=== PATIENT | male | born 1990 | race American Indian/Alaskan Native ===

== ENCOUNTER 2020-02-24 16:00 | Emergency (ER) | payer OTHER ==
--- NOTE | 2020-02-24 19:49 | XRay Report ---
CHEST 2 VIEWS INDICATION / CLINICAL INFORMATION: Coughing up blood tinged mucus. Vomiting blood on and off for one month. Diagnosed with bronchitis la st month. COMPARISON: None available. FINDINGS: SUPPORT DEVICES: None. HEART / MEDIASTINUM: The heart size and pulmonary vasculature are normal. LUNGS / PLEURA: No significant pulmonary or pleural abnormality. No pneumothorax. ADDITIONAL FINDINGS: The visualized upper abdomen is unremarkable. IMPRESSION: No acute findings. There is no evidence of pneumonia. Signer Name: Raghav Pereyra MD Signed: 02/24/2020 7:44 PM Workstation Name: [id number]
--- NOTE | 2020-02-24 20:31 | Emergency Department Report ---
ED General Adult HPI - General Chief complaint: Nausea/Vomiting/Diarrhea Stated complaint: COUGHING UP BROWN SPECKS Time Seen by Provider: 02/24/20 19:19 Source: patient Mode of arrival: Ambulatory Limitations: No Limitations - History of Present Illness Initial comments: 29-year-old -[place] male presents to the emergency room reporting that he had coughed up some mucus that had blood-tinged and black particles patient reports that he has had a cough that is been intermittent for a month. Patient reported that he was diagnosed with bronchitis last month and had complete antibiotics. Patient comes in today reporting very little cough no chest pain no shortness of breath no fever chills or diarrhea no chest pain. ED Review of Systems ROS: Stated complaint: COUGHING UP BROWN SPECKS Other details as noted in HPI ED Past Medical Hx - Past Medical History Additional medical history: PTSD DEPRESSION ANXIETY - Surgical History Past Surgical History?: No - Social History Smoking Status: Current Some Day Smoker Substance Use Type: None ED Physical Exam - General Limitations: No Limitations ED Course Vital Signs 02/24/20 16:03 Temperature 97.9 F Pulse Rate 69 Respiratory 20 Rate Blood Pressure 152/109 O2 Sat by Pulse 98 Oximetry ED Medical Decision Making - Radiology Data Radiology results: report reviewed Referring Physician:BILL MENDOZAPatient Name:DREAD NURSEPatient ID:[id number] of :[id number]:MaleAccession:[id number] Date:[id number] Status:Finalized Findings [facility] [address] [place] [address] XRay Report Signed Patient: DREAD COY MR#: [id number] : 1990 Acct:[id number] Age/Sex: 29 / M ADM Date: 02/24/20 Loc: ED Attending Dr: Ordering Physician: HOMER WYNNE Date of Service: 02/24/20 Procedure(s): XR chest routine 2V Accession Number(s): [id number] cc: HOMER WYNNE Fluoro Time In Minutes: CHEST 2 VIEWS INDICATION / CLINICAL INFORMATION: Coughing up blood tinged mucus. Vomiting blood on and off for one month. Diagnosed with bronchitis last month. COMPARISON: None available. FINDINGS: SUPPORT DEVICES: None. HEART / MEDIASTINUM: The heart size and pulmonary vasculature are normal. LUNGS / PLEURA: No significant pulmonary or pleural abnormality. No pneumothorax. ADDITIONAL FINDINGS: The visualized upper abdomen is unremarkable. IMPRESSION: No acute findings. There is no evidence of pneumonia. Signer Name: Raghav Pereyra MD Signed: 02/24/2020 7:44 PM Workstation Name: [id number] Transcribed By: RT Dictated By: Raghav Pereyra MD Electronically Authenticated By: Raghav Pereyra MD Signed Date/Time: 02/24/201943 DD/ 42 TD/TT: - Medical Decision Making 29-year-old -[place] male presents to the emergency room reporting that he had coughed up some mucus that had blood-tinged and black particles patient reports that he has had a cough that is been intermittent for a month. Patient reported that he was diagnosed with bronchitis last month and had complete antibiotics. Patient comes in today reporting very little cough no chest pain no shortness of breath no fever chills or diarrhea no chest pain. Critical care attestation.: If time is entered above; I have spent that time in minutes in the direct care of this critically ill patient, excluding procedure time. ED Disposition Clinical Impression: History of acute bronchitis Disposition: DC-01 TO HOME OR SELFCARE Is pt being admited?: No Does the pt Need Aspirin: No Condition: Stable Additional Instructions: Please refrain from smoking cigarettes/cannabis. Increase your water intake. Follow-up with your primary care provider. Referrals: OSORIO GRIFFITH MD [Primary Care Provider] - 3-5 Days [facility] [Outside] - 3-5 Days
[2020-02-24 20:43] VITALS: BP 146/97
== END 2020-02-24 20:42 | disposition home or self-care (01) ==
LOC: ED 16:00
DX: J20.9 Acute bronchitis, unspecified (principal); F17.200 Nicotine dependence, unspecified, uncomplicated; F43.10 Post-traumatic stress disorder, unspecified; F41.9 Anxiety disorder, unspecified
CPT/HCPCS: 71046